=== PATIENT | female | born 1955 | race Caucasian/White ===

== ENCOUNTER 2024-01-28 17:46 | Emergency (ER) | payer MEDICARE, OTHER ==
[2024-01-28] MEDS ORDERED: Bacitracin 1 PK ONE (18:10)
[2024-01-28] MEDS ORDERED: Ondansetron ODT 4 MG TAB ONE ×2 (18:10→18:16)
[2024-01-28] MEDS ORDERED: Naproxen 500 MG TAB ONE (18:10)
[2024-01-28] MEDS ORDERED: Boostrix 0.5 ML (Tdap) VIAL (>/=7 yrs of age) ONE (18:22)
== END 2024-01-28 18:56 | disposition home or self-care (01) ==
LOC: BURERS 17:46
DX: S52.501A Unspecified fracture of the lower end of right radius, initial encounter for closed fracture (principal); V80.010A Animal-rider injured by fall from or being thrown from horse in noncollision accident, initial encounter
CPT/HCPCS: 90471; 90715; Q0162